=== PATIENT | female | born 1975 | race Caucasian/White ===

== ENCOUNTER 2016-04-23 00:16 | Emergency (ER) | payer MEDICAID ==
[2016-04-23] MEDS ORDERED: KETOROLAC 60 MG/2 ML VIAL IM ONE (02:00)
[2016-04-23] MEDS ORDERED: ORPHENADRINE 60 MG/2 ML AMP ONE (02:01)
== END 2016-04-23 03:08 | disposition home or self-care (01) ==
LOC: ER 00:16
DX: M25.551 Pain in right hip (principal); F17.290 Nicotine dependence, other tobacco product, uncomplicated
CPT/HCPCS: 96372